=== PATIENT | male | born 2000 | race Hispanic/Latino ===

== ENCOUNTER → 2024-06-13 | Emergency (ER) | payer SELFPAY ==
[~2024-06-13] MED LIST: CEPHALEXIN500 MG PO; LIDOCAINE HCL 1% LOCAL INJ 20 ML VIAL INJ STA; SILVER NITRATE SWABS ONE; SILVER NITRATE SWABS TOP ONE; TETANUS/DIPHTHERIA TOX ADULT 0.5 ML SYR IM ONE
== END | disposition home or self-care (01) ==
LOC: ER 20:05
DX: S61.202A Unspecified open wound of right middle finger without damage to nail, initial encounter (principal); V19.3XXA Pedal cyclist (driver) (passenger) injured in unspecified nontraffic accident, initial encounter; Y92.89 Other specified places as the place of occurrence of the external cause
CPT/HCPCS: 90471 ×2; 90714; 99283; J2001